=== PATIENT | male | born 1940 | race Caucasian/White ===

== ENCOUNTER 2018-11-19 05:49 | Day surgery (SDC) | payer MEDICARE, BC ==
[2018-11-18 14:03] LABS: BASOPHILS % (AUTO) 0.6 % (0-1); EOSINOPHILS # (AUTO) 0.1 X10'3 (0-0.9); EOSINOPHILS % (AUTO) 2.1 % (0-6); HEMATOCRIT 38.1 % (42.0-52.0); HEMOGLOBIN 12.7 g/dl (14.0-17.9); LYMPHOCYTES # (AUTO) 1.3 X10'3 (1.1-4.8); LYMPHOCYTES % (AUTO) 19.8 % (21-51); MEAN CORPUSCULAR HEMOGLOBIN 29.3 PG (27.0-31.0); MEAN CORPUSCULAR HGB CONC 33.4 g/dL (33.0-36.5); MEAN CORPUSCULAR VOLUME 87.6 FL (78-98); MEAN PLATELET VOLUME 7.5 FL (7.4-10.4); MONOCYTES # (AUTO) 0.6 X10'3 (0-0.9); MONOCYTES % (AUTO) 9.4 % (2-12); NEUTROPHILS # (AUTO) 4.6 X10'3 (1.8-7.7); NEUTROPHILS % (AUTO) 68.1 % (42-75); PLATELET COUNT 275 X10'3 (140-440); RED BLOOD COUNT 4.35 X10'6 (4.70-6.10); RED CELL DISTRIBUTION WIDTH 13.8 % (11.5-14.5); WHITE BLOOD COUNT 6.8 X10'3 (4.5-11.0)
[2018-11-18 14:10] LABS: ALBUMIN 3.6 G/DL (3.4-5.0); ANION GAP 6 (8-16); BLOOD UREA NITROGEN 24 MG/DL (7-18); BUN/CREATININE RATIO 17.6 (5.4-32.0); CALCIUM 9.4 MG/DL (8.5-10.1); CHLORIDE 101 MMOL/L (99-107); CREATININE 1.36 MG/DL (0.60-1.10); GLUCOSE 210 MG/DL (70-104); POTASSIUM 4.8 MMOL/L (3.5-5.1); SODIUM 136 MMOL/L (135-145); TOTAL CARBON DIOXIDE 29.2 MMOL/L (24-32); eGFR 51 ML/MIN
[2018-11-18 14:11] LABS: PARTIAL THROMBOPLASTIN TIME 33 SECONDS (22-32); PROTHROMBIN TIME 10.5 SECONDS (9.0-12.0)
[2018-11-19] VITALS (18 sets, daily range): BP systolic 129–175; BP diastolic 66–99
[~2018-11-19] VITALS: Ht 177.8 cm; Wt 120.6 kg
[~2018-11-19 05:49] MED LIST: ASPI-1 PO; ATOR20TA PO; CETI10TA15 PO; CLOP75TA35 PO; DOXE25CA3 PO; FEXO-124 PO; FLUT100D2 INH; HYDR-4069 PO; HYDR50TA65 PO; INSU100V36 SQ; INSU100V9 SQ; ISOS40TA14 PO; LINA5TAB4 PO; LOSA50TA3 PO; METF1000 PO; METO50TA16 PO; NITR0.3T10; PARO20TA6 PO; RANI150T8 PO; SPIR25TA PO
[2018-11-19] MEDS ORDERED: METF500T PO (06:37)
[2018-11-19] MEDS ORDERED: CLOB15CR4 TOP (06:37)
[2018-11-19] MEDS ORDERED: EPIN0.3A3 IM (06:37)
[2018-11-19] MEDS ORDERED: ALBU8.5H8 INH (06:37)
[2018-11-19] MEDS ORDERED: FURO20TA4 PO (06:43)
[2018-11-19] MEDS ORDERED: ASPI81TA52 PO (06:43)
[2018-11-19] MEDS ORDERED: SITA25TA3 PO (06:43)
[2018-11-19] MEDS ORDERED: PRED20TA PO (06:43)
[2018-11-19] MEDS ORDERED: LORazepam 0.5 MG tablet PO PRN (06:55)
[2018-11-19] MEDS ORDERED: normal saline 1,000 ML IV SCH (06:55)
[2018-11-19] MEDS ORDERED: diphenhydrAMINE 25mg capsule PO PRN (06:55)
[2018-11-19] MEDS: acetylcysteine 200 MG/ml 4ml vial PO PRN ×3 (07:00→16:38)
[2018-11-19] MEDS ORDERED: sodium bicarbonate (8.4%) inj. 150 ML in dextrose 5%-water 1,000 ML IV ONE (07:00)
[2018-11-19] MEDS ORDERED: nitroGLYCERIN-Tridil 50MG/D5W 250 ML IV ONE (07:37)
[2018-11-19] MEDS ORDERED: iohexol 350MG/ML 100ml bottle IV ONE (07:38)
[2018-11-19] MEDS ORDERED: fentaNYL/PF 50MCG/1 ML 2ML syringe ONE (07:38)
[2018-11-19] MEDS ORDERED: LIDOcaine 1% (10mg/ml)w/preservative injection 20ml MDV ONE (07:38)
[2018-11-19] MEDS ORDERED: iohexol 350 MG/ML 50ML vial IV ONE (07:38)
[2018-11-19] MEDS ORDERED: midazolam 2 mg/2 ml injection ONE ×2 (07:38→09:00)
[2018-11-19] MEDS ORDERED: heparin 1,000unit/ml 10ml vial 10 ML ONE ×2 (07:38→09:13)
[2018-11-19] MEDS ORDERED: verapamil 2.5 mg/ml inj IV ONE (07:38)
[2018-11-19] MEDS ORDERED: LIDOcaine/PRILOcaine 5gm cream TP ONE (07:40)
[2018-11-19] MEDS ORDERED: iohexol 350 MG/1 ML 200ml bottle ONE (09:02)
[2018-11-19] MEDS ORDERED: heparin 1,000 UNITS/NS 500ml 500 ML ONE (09:03)
[2018-11-19] MEDS ORDERED: heparin 25,000 UNIT/250ml bag 250 ML IV ONE (09:06)
[2018-11-19] MEDS ORDERED: clopidogrel 300mg tablet ONE (10:00)
[2018-11-19] MEDS ORDERED: aspirin 81mg tab.chew PO ONE (10:50)
[2018-11-19] MEDS ORDERED: OXAZEpam 15mg capsule PO PRN (10:55)
[2018-11-19] MEDS ORDERED: cyclobenzaprine 10mg tablet PO PRN (10:55)
[2018-11-19] MEDS ORDERED: HYDROcodone/acetaminophen 10/325mg tab PO PRN ×2 (10:55)
[2018-11-19] MEDS ORDERED: acetaminophen 325mg tablet PO PRN (10:55)
[2018-11-19] MEDS ORDERED: EPINEPHRINE IM PRN (11:10)
[2018-11-19] MEDS ORDERED: albuterol 2.5 MG/3 ML nebule NEB PRN (11:10)
[2018-11-19] MEDS ORDERED: nitroGLYCERIN 0.4mg SUBLingual tab SL ONE (11:40)
[2018-11-19 15:11] LABS: ISTAT HGB ART 12.9 g/dl (14.0-18.0); ISTAT Hct ART 38 %PCV (42-52); ISTAT O2 SATURATION ARTERIAL 96 % (95-98); ISTAT SOURCE ART
[2018-11-19 15:11] LABS: ISTAT Hct MIX 38 %PCV (42-52); ISTAT O2 SATURATION MIX VENOUS 71 % (60-80); ISTAT SOURCE MIX
[2018-11-19] MEDS ORDERED: hydrALAZINE 25 MG tablet PO SCH ×2 (16:00)
[2018-11-19] MEDS ORDERED: insulin Lispro (HumaLOG) vial - multi-dose SQ SCH (17:00)
[2018-11-19] MEDS ORDERED: hydrOXYzine 25 MG tablet PO SCH (20:00)
[2018-11-19] MEDS ORDERED: fluticasone nasal spray 16GM bottle NS SCH (20:00)
[2018-11-19] MEDS ORDERED: metoprolol tartrate 50mg tablet PO SCH (20:00)
[2018-11-19] MEDS ORDERED: clobetasol propionate ointment 15gm TP SCH (20:00)
[2018-11-19] MEDS ORDERED: famotidine 20mg tablet PO SCH (20:00)
[2018-11-19] MEDS ORDERED: doxepin 25mg capsule PO SCH (21:00)
[2018-11-19] MEDS ORDERED: insulin glargine (Lantus) pen - multi-dose SQ SCH (21:00)
[2018-11-19] MEDS ORDERED: atorvastatin 20mg tablet PO SCH (21:00)
[2018-11-20] MEDS ORDERED: predniSONE 20 mg tablet PO SCH (08:00)
[2018-11-20] MEDS ORDERED: spironolactone 25 MG tablet PO SCH (08:00)
[2018-11-20] MEDS ORDERED: clopidogrel 75mg tablet PO SCH ×2 (08:00)
[2018-11-20] MEDS ORDERED: furosemide 20MG tablet PO SCH (08:00)
[2018-11-20] MEDS ORDERED: loratadine 10mg tablet PO SCH (08:00)
[2018-11-20] MEDS ORDERED: PARoxetine 20mg tablet PO SCH (08:00)
[2018-11-20] MEDS ORDERED: linagliptin 5mg tablet PO SCH (08:00)
[2018-11-20] MEDS ORDERED: SITAGLIPTIN PHOSPHATE 100 MG PO SCH (08:00)
[2018-11-20] MEDS ORDERED: aspirin 325mg tablet PO SCH (08:30)
[2018-11-21] MEDS ORDERED: metFORMIN 500mg tablet PO SCH (07:00)
== END 2018-11-19 17:45 | disposition home or self-care (01) ==
LOC: SSTAY O 05:49
PROVIDERS: ATTEND Internal Medicine Cardiovascular Disease
DX: I25.10 Atherosclerotic heart disease of native coronary artery without angina pectoris (principal)
CPT/HCPCS: 36415; 80048; 82803; 82948; 85014; 85025; 85347; 85610; 85730; 93005; 93461; A6257; C1874; C9604; J1644; J2001; J2250; J3010; J7030; Q0163; Q9967; 99152; 99153; A4620; C1725; C1769; J1815; J3490